=== PATIENT | female | born 1980 | race Asian ===

== ENCOUNTER 2022-09-11 10:20 | Emergency (ER) | payer SELFPAY ==
[~2022-09-11] VITALS: Ht 167.6 cm; Wt 67.0 kg
[2022-09-11 10:39] VITALS: BP 111/57
[2022-09-11 12:04] LABS: BASOPHILS % 0.8 % (0.0-2.0); EOSINOPHILS % 8.3 % (0.0-5.0); HEMATOCRIT. 32.6 % (36.0-48.0); HEMOGLOBIN. 10.5 g/dL (12.0-16.0); LYMPHOCYTES % 25.7 % (20.0-50.0); MEAN CORPUSCULAR HEMOGLOBIN 24.6 pg (28.0-32.0); MEAN CORPUSCULAR VOLUME 76.3 fL (81.0-99.0); MONOCYTES % 6.8 % (2.0-8.0); NEUTROPHILS % 58.4 % (40.0-76.0); PLATELET 229 x1000/uL (130-400); RED BLOOD CELL COUNT 4.28 mill/uL (4.2-5.4); RED CELL DISTRIBUTION WIDTH 16.8 % (11.6-14.6)
[2022-09-11 12:11] LABS: CHLORIDE 107 mEq/L (98-107)
[2022-09-11] MEDS ORDERED: IBUPROFEN 400MG TABLET PO ONE (12:15)
[2022-09-11 12:35] LABS: HCG SCREEN NEGATIVE
[2022-09-11] MEDS ORDERED: IBUP-2028 MT (13:35)
== END 2022-09-11 13:49 | disposition home or self-care (01) ==
LOC: ER 10:36
DX: U09.9 Post COVID-19 condition, unspecified (principal); R06.02 Shortness of breath; F41.0 Panic disorder [episodic paroxysmal anxiety]
CPT/HCPCS: 36415; 71045; 80053; 83880; 84484; 84703; 85025; 85379; 93005; 99285